=== PATIENT | female | born 1995 | race Caucasian/White ===

== ENCOUNTER 2023-12-04 17:10 | Emergency (ER) | payer BC, SELFPAY ==
[2023-12-04] VITALS (16 sets, daily range): BP systolic 97–151; BP diastolic 55–95; PULSE 64–98; RESP 14–23; TEMP 36.6; O2SAT 96–100
--- NOTE | 2023-12-04 18:00 | DI.RAD_ITS ---
Exam(s) XR ELBOW RT COMPLETE EXAM: XR ELBOW RT COMPLETE CLINICAL HISTORY: fall on outstretched hand, pain elbow. TECHNIQUE: 2D digital imaging was performed of the left elbow. Four images were obtained. AP, late ral and oblique views were obtained. COMPARISON: No exams were available for comparison FINDINGS: BONES: There is a posterior elbow dislocation. On the lateral view there is a crescentic bony fragme nt posterior to the humeral condyles. Fracture presumably arises from the distal humerus. The coron oid process of the ulna appears intact. No bony destructive lesion is seen. JOINTS: Posterior right elbow dislocation. Joint effusion is seen. SOFT TISSUE: Normal. IMPRESSION: There is a posterior dislocation of the right elbow. There is a 8 mm crescentic bony fragment retort condenser attendant ior to the humeral condyles suspicious for fracture. This appears to have arisen from the distal hum erus. DATA REPOSITORY: RADIATION DOSE DELIVERED:
--- NOTE | 2023-12-04 19:06 | NUR.NOTE ---
report given to LOVE Blanc and care relinquished
--- NOTE | 2023-12-04 19:54 | NUR.NOTE ---
sedationstarted at 194 and finished at 1949, 160 mg propofol administered total
[2023-12-04] MEDS: diphenhydrAMINE 50 MG/ML VIAL (19:55)
[2023-12-04] MEDS: Propofol 200 MG/20 ML VIAL (19:55)
--- NOTE | 2023-12-04 20:01 | W.ED.GENAD ---
Discharge Plan Disposition Patient Disposition: Home Condition: Stable Discharge Details Clinical Impression: Fracture dislocation of right elbow joint Primary Care Provider: Sravani,Local ED Provider: Chacho Palm Home Meds and New Rx's Prescriptions: Continued multivitamin [Daily Multi-Vitamin] Tablet 1 tab PO DAILY Discharge Instructions Instructions: Elbow Dislocation (ED) Additional Instructions: Please take acetaminophen (tylenol) - 650mg every 6 hours by mouth as needed for pain. Apply ice to the area a few times a day. Do not apply ice directly to skin - use a fabric barrier. Keep arm in sling. Please follow-up with orthopedics. Call on Thursday to schedule timely follow-up for reassessment. No use of right arm until cleared by orthopedics. Please contact your primary care physician to arrange follow-up. Return to the ER immediately for any worsening or new concerning symptoms. You did develop some rash after receiving propofol today. Rash was a mottling discoloration to your upper chest. You did not develop any hives or other signs of allergic reaction. Please be sure to discuss this with your doctor and with anesthesiology if you need anesthesia in the future. HPI General Date/Time Provider Initiated Documentation: 12/04/23 17:24. Related Data Home Medications Medication Instructions Recorded Confirmed multivitamin (Daily Multi-Vitamin 1 tab PO DAILY 12/04/23 12/04/23 tablet) Allergies Allergy/AdvReac Type Severity Reaction Status Date / Time amoxicillin Allergy Skin Rash Verified 12/04/23 17:20 ibuprofen Allergy eyes swell Verified 12/04/23 17:20 General Stated Complaint: Orthopedic OMID: 3 Course Vital Signs Vital signs: Vital Signs Temperature 36.6 C 12/04/23 17:16 Pulse 74 12/04/23 17:16 Respiratory Rate 18 12/04/23 17:16 Blood Pressure 97/55 L 12/04/23 17:16 Pulse Oximetry 100 12/04/23 17:16 Temperature 36.6 C 12/04/23 17:16 Temperature Source Skin 12/04/23 17:16 Pulse 70 12/04/23 19:50 Pulse 72 12/04/23 19:51 Respiratory Rate 14 12/04/23 19:50 Respiratory Effort Normal 12/04/23 17:18 Blood Pressure 140/95 H 12/04/23 19:51 Blood Pressure Mean 106 12/04/23 19:50 Blood Pressure Position Sitting 12/04/23 17:16 Pulse Oximetry 98 12/04/23 19:51 Respiratory End-tidal CO2 31 12/04/23 19:51 Oxygen Delivery Method Room Air 12/04/23 17:16 Oxygen Flow Rate 0 12/04/23 17:16 Procedures Procedural Sedation Indication: fracture/dislocation reduction ASA Class: I Preparation: court recording monitor applied, pulse oximeter, capnometry used and suction/airway equipment at bedside IV Propofol dose (mg): 160 Patient Tolerated Procedure: well Additional Comments: Patient did develop mottling rash of her upper chest shortly after administration of propofol. Benadryl was given and she had no further rash or allergic symptoms. Medical Decision Making 28-year-old female presents with severe elbow pain and inability to flex after fall from horse with outstretched arm. Patient neurovascular intact distally. X-ray of the elbow reviewed and interpreted by me: Posterior dislocation right elbow. Radiology noting 8 mm concentric bony fragment posterior to the humeral condyle suspicious for fracture. ED presentation course discussed with orthopedics on-call, Dr. Alvarado. Dr. Alvarado evaluated the patient and performed joint reduction. Procedural sedation was performed by me, please see procedure note. Patient did develop some flushing of her upper chest after propofol administration. Benadryl 25 mg IV was administered. No hives or airway involvement. Patient remained hemodynamically stable. Patient was informed of reaction. Dr. Alvarado recommended CT imaging postreduction. Patient was placed in sling and there is plan for outpatient follow-up with orthopedics. 2144 --patient reassessed has remained stable. CT examined by Dr. Alvarado who notes no need for any further intervention at this time. Quality:SDOH Health Related Social Needs: No Data to Display [facility] All Active Problems (Updated 12/04/23 @ 20:02 by Chacho Palm MD) Fracture dislocation of right elbow joint (Acute) Social History Smoking/Tobacco Use Status: Never Smoking risk assessment performed?: Yes Substance use type: marijuana
--- NOTE | 2023-12-04 20:03 | OCONE_ITS ---
Date of service: 12/04/23 Time of Service: 07:35 History of Present Illness History of Present Illness Chief Complaint: Right elbow dislocation Narrative: Silas is a 28-year-old female who was riding a horse today when she fell. She landed onto an outstretched right hand. She had immediate pain and difficulty with moving of the right elbow. [place]. She was diagnosed with a right elbow dislocation. I was called by Dr. Palm for assistance with reduction of the elbow dislocation. She denies any numbness or tingling. She denies any issues with the right hand or elbow previously. She denies any head trauma. No shoulder pain. Consults Consult date: 12/04/23 Requesting physician: hCacho Palm Consult Reason Right elbow dislocation Assessment and Plan Assessment and plan (1) Fracture dislocation of right elbow joint: Status: Acute Assessment and plan: Silas is a 28-year-old female who suffered a fall onto the right hand resulting in an elbow dislocation. I recommended proceeding with a closed reduction with procedural sedation provided by Dr. Palm in the emergency department. I reviewed briefly the technical features of the case and potential risk to include incomplete reduction, need for open reduction, worsening of any subtle fracture and potential incarcerated fragments. However, likely that this reduces without difficulty. She agreed to proceed with the reduction. The reduction was successful. After reduction there is no significant gross instability. I was able to range the elbow from 0 to 145 degrees without restriction. The elbow is also apparently stable to gentle varus and valgus stress. Posterior lateral instability testing was not performed given that it w as likely to be unstable. A postreduction CT scan was performed which showed that the bony fragment seen on the initial x-ray likely originating from the radial head anteriorly and potentially the anterior medial coronoid. These fragments are quite small. They are not interposed in the joint space and the joint spaces congruent and reduced. Therefore, I think this is going to behave much like a simple dislocation. I placed her into a sling. She may use the hand and fingers as tolerated. Gentle elbow range of motion she may start with avoidance of any weightbearing of the elbow particularly and going from a flexed to an extended position. I reviewed this with her. I encouraged her to follow- up with an orthopedic surgeon and likely physical therapy when she returns to [place]. Review of Systems All systems reviewed & are unremarkable except as noted in HPI and below PFSH All Active Problems Fracture dislocation of right elbow joint (Acute) Social History Smoking/Tobacco Use Status: Never Smoking risk assessment performed?: Yes Substance use type: marijuana Exam Narrative Exam Narrative: Sitting up in the hospital stretcher. No acute distress. Alert and oriented x 3. Head is normocephalic and atraumatic. Evaluation the right upper extremity shows the arm held in a semiflexed position. There is an obvious defect seen about the right elbow with prominence to the lateral side of the proximal forearm and the sulcus posteriorly. No significant pain with palpation about the humerus. No pain to palpation about the wrist or the hand. Palpable radial pulse. Sensation intact to light touch over the median, radial, ulnar nerve. She is able to demonstrate active thumb extension, thumb flexion, finger abduction. Results Last Vital Signs Temp 36.6 C 12/04/23 17:16 Pulse 70 12/04/23 19:50 Resp 14 12/04/23 19:50 BP 140/95 H 12/04/23 19:51 Pulse Ox 98 12/04/23 19:51 Imaging Imaging Studies: X-ray of the right elbow shows a posterior lateral dislocation. There is a small osseous fragment seen over the distal humerus without clear origin. No other major fracture at identified. CT scan of the right elbow after reduction demonstrates a concentric reduction. There is no interposed fragments. There are 2 quite small bony fragments that I can detect on the CT scan. 1 is over the anterior aspect of the radial head involving just the rim of the radial head without apparent joint involvement. The other is adjacent to the coronoid and likely represents a very small coronoid tip fracture about the anterior medial coronoid. No other fractures are identified. Procedures Orthopedic Joint Reduction Right elbow: Time out performed: Yes Side: right Joint reduction location: elbow Analgesia: procedural sedation Technique used: direct manipulation Post-reduction neuro exam: intact Post-reduction vascular exam: intact Post-reduction x-ray obtained: Yes Post-reduction x-ray results: reduced Splint applied: Yes (Sling) Patient tolerated procedure: well
--- NOTE | 2023-12-04 20:09 | RESPIRATORY ---
PATIENT PLACED ON 3L/M NC ALONG WITH CO2 MONITORING. PT TOLERATED PROCEDURE WELL O2 READING 99-100% CO2 28 -30, RR14-16 NO ADVERSE REACTION AT THIS TIME. 20:05
[2023-12-04 20:36] LABS: HCG Qual (Serum) Negative
--- NOTE | 2023-12-04 21:37 | DI.CT_ITS ---
Exam(s) CT UPPER EXTREMITY RT WO EXAM: CT UPPER EXTREMITY RT WO CLINICAL HISTORY: f/u right elbow dislocaiton, evaluate bony involve. TECHNIQUE: Imaging Protocol: Axial computed tomography images with coronal and sagittal reformatted images were created and reviewed. COMPARISON: CR XR ELBOW RT COMPLETE from 12/04/2023 FINDINGS: Bones: There is a fracture of the anterior aspect of the radial head medially (series 5 images [id number] .). There is also a fracture fragment seen anterior to the coronoid process on the sagittal view. ( Series 5, image 63). Bony alignment is satisfactory. No cellulitic or osteomyelitic changes are carmen ntified. There is no evidence of joint space narrowing or cystic degeneration seen. No lytic or scle rotic lesions are identified. Soft Tissues: Normal. IMPRESSION: 1. Fracture involving the medial aspect of the anterior radial head. 2. Suspected fracture arising from the coronoid process with the fracture fragment seen on the sagitt al view (series 5, image 63). 3. No evidence of dislocation. Successful reduction. RADIATION DOSE DELIVERED: Total DLP Total DLP DATA REPOSITORY: All CT scans at this facility are submitted to the National Radiology Data Registry (NRDR) Dose Index Registry (DIR) with the [employer] ([employer]). RADIATION OPTIMIZATION: All CT scans at this facility use at least one of these dose optimization te chniques: automated exposure control; mA and/or kV adjustment per patient size (includes targeted exa ms where dose is matched to clinical indication); or iterative reconstruction.
--- NOTE | 2023-12-04 22:21 | DI.VRAD_ITS ---
PROCEDURE INFORMATION: Exam: CT Right Upper Extremity Without Contrast, Elbow Exam date and time: 12/04/2023 9:19 PM Age: 28 years old Clinical indication: Abnormal findings; Abnormal imaging study of the limbs; Patient HX: F/u right elbow dislocation, eval bony involve TECHNIQUE: Imaging protocol: Computed tomography of the right upper extremity without contrast. Exam focused on the elbow. Radiation optimization: All CT scans at this facility use at least one of these dose optimization techniques: automated exposure control; mA and/or kV adjustment per patient size (includes targeted exams where dose is matched to clinical indication); or iterative reconstruction. COMPARISON: CR XR ELBOW RT COMPLETE 12/04/2023 6:19 PM FINDINGS: Bones/joints: There is a small slightly displaced cortical fracture of the anteromedial margin of the radial head. No other evidence of acute fracture. Osseous alignment is otherwise normal. No significant arthritic change. Small amount of joint fluid. Soft tissues: Normal. IMPRESSION: Small cortical radial head fracture Dictated and Authenticated by: Jae Reza MD. Ordering:JEANIE Swift MD
--- NOTE | 2023-12-08 07:19 | NUR.NOTE ---
Accessed Pt chart to obtain diagnosis for the [facility].
== END 2023-12-04 22:02 | disposition home or self-care (01) ==
LOC: ER 20:31
PROVIDERS: Emergency Provider Student in an Organized Health Care Education/Training Program
DX: S42.131A Displaced fracture of coracoid process, right shoulder, initial encounter for closed fracture (principal); S52.121A Displaced fracture of head of right radius, initial encounter for closed fracture; V80.010A Animal-rider injured by fall from or being thrown from horse in noncollision accident, initial encounter; Y93.52 Activity, horseback riding; Y92.838 Other recreation area as the place of occurrence of the external cause
CPT/HCPCS: 24650; 99152; 99285; 73080; 73200; 84703; J1200; J2704